=== PATIENT | male | born 1970 | race Caucasian/White ===

== ENCOUNTER 2016-06-22 11:19 | Inpatient (IN) | payer SELFPAY ==
[~2016-06-22] VITALS: Ht 177.8 cm; Wt 107.5 kg
[2016-06-22 11:29] VITALS: BP 157/106; PULSE 118; RESP 12; TEMP 98.1; O2SAT 95
[2016-06-22 11:34] VITALS: BP 166/84; PULSE 101; RESP 20; O2SAT 99
[2016-06-22] MEDS ORDERED: SODIUM CHLOR 0.9% 1000 ML INJ 1,000 ML IV SCH (12:21)
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
[2016-06-22] MEDS ORDERED: TETANUS/DIPHTHERIA TOXOID ADULT 0.5 ML VIAL IM ONE (12:45)
[2016-06-22 14:12] LABS: AUTOMATED NEUTROPHIL # 9.7 TH/MM3 (1.8-7.7); BASOPHIL % 0.3 % (0.0-2.0); EOSINOPHIL % 0.4 % (0.0-4.0); HEMATOCRIT 47.7 % (39.0-51.0); HEMO FLAGS DIFF FINAL; LYMPH % 17.5 % (9.0-44.0); LYMPHOCYTE # 2.3 TH/MM3 (1.0-4.8); MEAN CELL VOLUME 88.6 FL (80.0-100.0); MEAN CORPUSCULAR HEMOGLOBIN 29.4 PG (27.0-34.0); MEAN CORPUSCULAR HGB CONC 33.2 % (32.0-36.0); MONO % 8.6 % (0.0-8.0); NEUT % 73.2 % (16.0-70.0); PLATELET COUNT 245 TH/MM3 (150-450); RED BLOOD COUNT 5.39 MIL/MM3 (4.50-5.90); WHITE BLOOD COUNT 13.2 TH/MM3 (4.0-11.0)
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
[2016-06-22 14:26] LABS: ALT (GPT) 31 U/L (12-78); ANION GAP 8 MEQ/L (5-15); AST (GOT) 31 U/L (15-37); BICARBONATE 26.3 MEQ/L (21.0-32.0); BLOOD UREA NITROGEN 9 MG/DL (7-18); CHLORIDE 103 MEQ/L (98-107); GLOMERULAR FILTRATION RATE 75 ML/MIN (>89); POTASSIUM 4.3 MEQ/L (3.5-5.1); SODIUM (NA) 137 MEQ/L (136-145)
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
[2016-06-22 14:31] LABS: ALKALINE PHOSPHATASE 74 U/L (45-117); TOTAL BILIRUBIN ADULT 0.6 MG/DL (0.2-1.0)
[2016-06-22] MEDS ORDERED: ONDANSETRON HCL 4 MG/2 ML VIAL IV PUSH ONE (14:45)
[2016-06-22] MEDS ORDERED: MORPHINE SULFATE 4 MG/ML INJ IV PUSH ONE (14:45)
[2016-06-22] MEDS ORDERED: IOHEXOL 350 MG/ML 10 ML VIAL (for RAD DIAG) IV ONE (15:27)
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
[2016-06-22 16:09] LABS: APTT (PATIENT) 30.1 SEC (24.3-30.1); PROTHROMBIN TIME - PATIENT 10.7 SEC (9.8-11.6)
[2016-06-22] MEDS ORDERED: SODIUM CHLORIDE 0.9% FLUSH 5 ML FLUSH FLUSH PRN (17:30)
[2016-06-22] MEDS ORDERED: NALOXONE HCL 0.4 MG/ML AMP IV PRN ×3 (17:30→17:45)
[2016-06-22] MEDS ORDERED: MORPHINE SULFATE 4 MG/ML INJ IV PRN (17:45)
[2016-06-22] MEDS ORDERED: ACETAMINOPHEN 325 MG TAB PO PRN (17:45)
[2016-06-22] MEDS ORDERED: ACETAMINOPHEN/HYDROcodone 325 MG/5 MG TAB PO PRN (17:45)
[2016-06-22] MEDS ORDERED: ONDANSETRON HCL 4 MG/2 ML VIAL IVP PRN (17:45)
[2016-06-22] MEDS ORDERED: TEMAZEPAM 15 MG CAP PO PRN (17:45)
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
[2016-06-22 20:31] VITALS: BP 142/68; PULSE 98; RESP 20; TEMP 98; O2SAT 99
[2016-06-22] MEDS ORDERED: SODIUM CHLORIDE 0.9% FLUSH 5 ML FLUSH FLUSH SCH (21:00)
[2016-06-22] MEDS ORDERED: DOCUSATE SODIUM 100 MG CAP PO SCH (21:00)
[2016-06-22] MEDS: ACETAMINOPHEN/HYDROcodone 325 MG/10 MG TAB PO PRN (22:42)
[2016-06-22 22:45] VITALS: BP 158/81; PULSE 89; RESP 17; TEMP 97.7; O2SAT 97
[2016-06-22] MEDS ORDERED: LACTATED RINGER'S 1000 ML IV SCH (23:00)
[2016-06-23 02:00] VITALS: BP 141/78; PULSE 69; RESP 17; TEMP 97.4; O2SAT 93
[2016-06-23 04:10] VITALS: BP 154/86; PULSE 78; RESP 17; TEMP 98.6; O2SAT 95
[2016-06-23] MEDS: ACETAMINOPHEN/HYDROcodone 325 MG/10 MG TAB PO PRN (05:38)
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
[2016-06-23] MEDS ORDERED: HYDR-3288 PO (06:39)
[2016-06-23] MEDS ORDERED: WALKER/ADULT/FO1 MIS (06:39)
[2016-06-23 06:59] LABS: AUTOMATED NEUTROPHIL # 5.3 TH/MM3 (1.8-7.7); BASOPHIL % 0.4 % (0.0-2.0); EOSINOPHIL # 0.2 TH/MM3 (0-0.4); HEMATOCRIT 43.1 % (39.0-51.0); HEMO FLAGS DIFF FINAL; LYMPHOCYTE # 2.1 TH/MM3 (1.0-4.8); MEAN CELL VOLUME 86.6 FL (80.0-100.0); MEAN CORPUSCULAR HEMOGLOBIN 30.1 PG (27.0-34.0); MEAN CORPUSCULAR HGB CONC 34.8 % (32.0-36.0); MONO % 9.7 % (0.0-8.0); NEUT % 62.9 % (16.0-70.0); PLATELET COUNT 238 TH/MM3 (150-450); RED BLOOD COUNT 4.97 MIL/MM3 (4.50-5.90); RED CELL DISTRIBUTION WIDTH 14.1 % (11.6-17.2); WHITE BLOOD COUNT 8.4 TH/MM3 (4.0-11.0)
[2016-06-23 07:12] LABS: BICARBONATE 27.4 MEQ/L (21.0-32.0); POTASSIUM 4.2 MEQ/L (3.5-5.1)
[2016-06-23 08:00] VITALS: BP 135/84; PULSE 76; RESP 16; TEMP 97.8; O2SAT 96
[2016-06-23] MEDS ORDERED: SODIUM CHLOR 0.9% 250 ML INJ 250 ML ONE (08:07)
[2016-06-23] MEDS ORDERED: ceFAZolin 2 GM PREMIX 50 ML ONE (08:07)
[2016-06-23] MEDS ORDERED: GENTAMICIN SULFATE 80 MG/2 ML VIAL ONE (08:07)
[2016-06-23] MEDS ORDERED: VANCOMYCIN HCL 1000 MG VIAL ONE (08:07)
[2016-06-23] MEDS ORDERED: MIDAZOLAM HCL 2 MG/2 ML VIAL ONE (08:48)
[2016-06-23] MEDS ORDERED: ACETAMINOPHEN 1000 MG/100 ML VIAL IV ONE (08:51)
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
--- NOTE | 2016-06-23 10:10 | PD.OP ---
cc: Emil Cordova MD Operative Report Date of Surgery: Jun 23, 2016 Preoperative Diagnosis: Displaced right ankle fracture Postoperative Diagnosis: Procedure: Open reduction internal fixation right distal fibula, stress exam of syndesmosis under anesthesia Anesthesia: Gen. Surgeon: Emil Cordova Senior [employer] Consultant(s): RIZWAN Barnett PA-C The surgical procedure was assisted by my physician insurance assistant. My P.A. presence was necessary throughout this case for the manipulation and positioning of the surgical extremity. My P.A. was assisting me throughout the duration of this procedure. The skill set of a physician insurance assistant was medically necessary to complete this procedure. During the surgical case the surgical instrument technician was working at the back table and the physician insurance assistant was directly assisting me. Operation and Findings: This patient sustained an ankle injury with displaced fibular fracture. Informed consent was obtained preoperatively after detailed discussion of risk and benefits of surgery. Operative site was marked. Patient was brought to operating room and placed on operating room table. IV sedation and GETA were administered by anesthesiologist. IV antibiotics were given prior to incision. Operative leg was prepped with alcohol followed by Hibiclens and draped in usual sterile fashion. Timeout procedure was performed. Procedure began with a 4 inch incision over the distal fibula. Subcutaneous tissues dissected with Bovie. Fracture site was visualized. Fracture was now carefully reduced. Fracture keyed into excellent alignment. Fracture tenaculums were used to hold reduction. 2.7 cortical lag screws were used to compress fracture. Multiplanar fluoroscopy revealed excellent alignment of fracture. A Synthes plate was selected. Plate was provisionally held the bone with K wires. Fluoroscopy confirmed plate placement. 3.5 cortical screws were used to compress plate to bone. Multiple screws were placed on each side of the fracture. Additional locking screws were placed distally. Fluoroscopy confirmed excellent of fracture with well-placed hardware. Next attention was turned towards the syndesmosis. The syndesmosis was gently stressed. The ankle was externally rotated. There was no widening of the syndesmosis. Next the wound was thoroughly irrigated with sterile saline. Subcutaneous tissues closed with 3-0 Vicryl. Skin was closed with 3-0 nylon. Sterile dressings were applied. Patient was placed into a well molded well-padded splint. Patient was awakened and transferred to recovery room in stable condition. Needle and sponge counts were correct. Emil Cordova MD Jun 23, 2016 10:09
[2016-06-23] MEDS ORDERED: MORPHINE SULFATE 4 MG/ML INJ IV PUSH PRN (10:15)
[2016-06-23] MEDS ORDERED: Post-op Orders (for Pharmacy) MISC XX ONE (10:15)
[2016-06-23] MEDS ORDERED: ACETAMINOPHEN/HYDROcodone 325 MG/7.5 MG TAB PO PRN ×2 (10:15)
[2016-06-23] MEDS ORDERED: DO NOT ADM ANY ANTICOAGULANT DRUGS XX PRN (10:30)
[2016-06-23] MEDS ORDERED: fentaNYL CITRATE 250 MCG/5 ML AMP ONE (10:39)
[2016-06-23 12:00] VITALS: BP 143/84; PULSE 66; RESP 16; TEMP 97.2; O2SAT 97
[2016-06-23] MEDS ORDERED: ONDANSETRON HCL 4 MG/2 ML VIAL IV PUSH ONE (12:00)
[2016-06-23] MEDS ORDERED: PROPOFOL 200 MG/20 ML AMP IV ONE (12:00)
[2016-06-23] MEDS ORDERED: LACTATED RINGER'S 1000 ML INJ 1,000 ML IV ONE (12:00)
[2016-06-23] MEDS ORDERED: ePHEDrine/NS 25 MG/5 ML SYR IV ONE (12:00)
--- NOTE | 2016-06-23 12:56 | RADRPT ---
EXAM DATE/TIME: 06/23/2016 09:56 [facility] COMPARISON: No previous studies available for comparison. INDICATIONS : ORIF right ankle. MEDICAL HISTORY : None. SURGICAL HISTORY : None. ENCOUNTER: Subsequent ACUITY: 2 days PAIN SCORE: Non-responsive. LOCATION: Right ankle. FINDINGS: 2 magnified C-arm spot views are centered over the ankle joint. An orthopedic plate is seen along the distal lateral cortical margin of the fibula. Multiple anchoring screws. Good alignment of the fibul ar fracture seen. CONCLUSION: Limited images as detailed above. Jero Morales Jr., MD on June 23, 2016 at 12:54 Board Certified Radiologist. This report was verified electronically.
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
--- NOTE | 2016-06-23 13:54 | HHI.DCPOC ---
Discharge Care Plan Diagnosis: (1) Closed fracture of right distal fibula Goals to Promote Your Health * To prevent worsening of your condition and complications * To maintain your health at the optimal level Directions to Meet Your Goals Take your medications as prescribed Follow your dietary instruction Follow activity as directed Keep your appointments as scheduled Take your immunizations and boosters as scheduled If your symptoms worsen call your PCP, if no PCP go to Urgent Care Center or Emergency Room Smoking is Dangerous to Your Health. Avoid second hand smoke Call the 24-hour hour crisis hotline for domestic abuse at Migdalia Billingsley MD R3 Jun 23, 2016 13:54
[2016-06-23 15:55] VITALS: O2SAT 97
--- NOTE | 2016-06-23 16:53 | EKG ---
Date Performed: 06/22/2016 Time Performed: 13:26:23 PTAGE: 45 years EKG: Sinus rhythm NORMAL ECG NO PREVIOUS TRACING DOCTOR: Hay Lilly Interpretating Date/Time 06/23/2016 16:52:33
[2016-06-23] MEDS ORDERED: ceFAZolin 2 GM PREMIX 50 ML IV SCH ×2 (17:00)
== END 2016-06-23 16:03 | disposition home or self-care (01) | DRG 494 ==
LOC: NEPB 11:19 → NEDA 17:15 → N06A 22:32
PROVIDERS: ADMIT Family Medicine; ATTEND Family Medicine
PROC: 0QSJ04Z Reposition Right Fibula with Internal Fixation Device, Open Approach (ICD-10-PCS; principal; 2016-06-23 09:08)
DX: S82.441A Displaced spiral fracture of shaft of right fibula, initial encounter for closed fracture (principal); S00.91XA Abrasion of unspecified part of head, initial encounter; S60.512A Abrasion of left hand, initial encounter; S60.511A Abrasion of right hand, initial encounter; S80.212A Abrasion, left knee, initial encounter; S80.211A Abrasion, right knee, initial encounter; V28.4XXA Motorcycle driver injured in noncollision transport accident in traffic accident, initial encounter; Y92.410 Unspecified street and highway as the place of occurrence of the external cause; F17.210 Nicotine dependence, cigarettes, uncomplicated
CPT/HCPCS: 70450; 70486; 71020; 73600; 73610; 73630; 74177; 76000; 80048; 80053; 83690; 84484; 85025; 85610; 85730; 86850; 86900; 86901; 90471; 90714; 93005; 94150; 96361; 96374; 96375; C1713; J0131; J0690; J1580; J2250; J2270; J2405; J3010; J3370; J7030; J7050; J7120; Q9967

== ENCOUNTER → 2016-08-07 | Outpatient (CLI) | payer SELFPAY ==
[~2016-08-07] MED LIST: HYDR-3288 PO; WALKER/ADULT/FO1 MIS
== END ==
LOC: HORT 16:28
PROVIDERS: ATTEND Physician Assistant
DX: Z47.89 Encounter for other orthopedic aftercare (principal)
CPT/HCPCS: L2114